=== PATIENT | female | born 1990 | race Caucasian/White ===

== ENCOUNTER 2017-11-29 06:17 | Inpatient (IN) | payer SELFPAY ==
[2017-11-29] MEDS: LACTATED RINGER'S 1,000 ML IV* ×3 (06:47→22:04)
[2017-11-29] MEDS ORDERED: METHYLERGONOVINE 0.2 MG INJ IM (07:00)
[2017-11-29] MEDS ORDERED: BUTORPHANOL 2 MG INJ IV (07:00)
[2017-11-29] MEDS ORDERED: MISOPROSTOL 200 MCG TAB PR (07:00)
[2017-11-29] MEDS ORDERED: IBUPROFEN 600 MG TAB PO (07:00)
[2017-11-29] MEDS ORDERED: CARBOPROST 250 MCG INJ IM (07:00)
[2017-11-29] MEDS ORDERED: OXYTOCIN 30 UNITS/LR 500 ML IV ×2 (07:00)
[2017-11-29] MEDS ORDERED: LIDOCAINE 1% (MPF) 30 ML INJ INJ (07:00)
[2017-11-29] MEDS: AMPICILLIN 2 GM/NS (PMX) 100 ML IV (07:18)
[2017-11-29 07:39] LABS: ADD MAN DIFF? NO
[2017-11-29 07:46] LABS: WHITE BLOOD COUNT 9.8 10^3/ul (4.8-10.8)
[2017-11-29 07:46] LABS: BASOPHILS % 0.4 % (0.0-2.0); EOSINOPHILS # 0.1 10^3/ul (0.0-0.5); EOSINOPHILS % 0.6 % (0.0-7.0); HEMATOCRIT 37.8 % (37.0-47.0); HEMOGLOBIN 12.2 g/dl (12.0-16.0); LYMPHOCYTES # 2.2 10^3/ul (0.8-2.9); LYMPHOCYTES % 22.1 % (15.0-51.0); MEAN CORPUSCULAR HEMOGLOBIN 27.2 pg (29.0-33.0); MEAN CORPUSCULAR HGB CONC 32.3 g/dl (32.0-37.0); MEAN CORPUSCULAR VOLUME 84.2 fl (82.0-101.0); MEAN PLATELET VOLUME 11.2 fl (7.4-10.4); MONOCYTE # 0.8 10^3/ul (0.3-0.9); MONOCYTES % 7.9 % (0.0-11.0); NEUTROPHIL # 6.7 10^3/ul (1.6-7.5); NEUTROPHILS % 68.4 % (39.0-77.0); PLATELET COUNT 272 10^3/UL (140-415); RED BLOOD COUNT 4.49 10^6/ul (4.20-5.40); RED CELL DISTRIBUTION WIDTH 14.3 % (11.5-14.5)
[2017-11-29 08:01] LABS: INR 0.93; PROTIME 12.6 Sec (11.9-14.9)
[2017-11-29 08:34] LABS: HEPATITIS B SURFACE ANTIGEN NEGATIVE (NEGATIVE)
[2017-11-29] MEDS: OXYTOCIN 30 UNITS/LR 500 ML IV (09:04)
[2017-11-29] MEDS: AMPICILLIN 1 GM/NS (PMX) 50 ML IV ×4 (11:14→22:31)
[2017-11-29] MEDS ORDERED: FENTAnyl 2MCG/ML-ROPIV 0.2% 100 ML (17:07)
[2017-11-29 17:08] LABS: RAPID PLASMA REAGIN NONREACTIVE (NR)
[2017-11-29] MEDS: LACTATED RINGER'S 1,000 ML IV (17:18)
[2017-11-29] MEDS ORDERED: DIPHENHYDRAMINE 50 MG INJ IV (18:00)
[2017-11-29] MEDS ORDERED: ONDANSETRON 4 MG INJ IV (18:00)
[2017-11-29] MEDS ORDERED: NALOXONE (0.4 MG/ML) INJ IV (18:00)
[2017-11-29] MEDS: FENTAnyl 2MCG/ML-ROPIV 0.2% 100 ML BAG EPI (18:05)
[2017-11-30] MEDS: OXYTOCIN 30 UNITS/LR 500 ML IV (00:49)
[2017-11-30] MEDS ORDERED: OXYTOCIN 30 UNITS/LR 500 ML IV ×2 (00:57→01:00)
[2017-11-30] MEDS ORDERED: HYDROCODONE/APAP (5/325) TAB PO (01:00)
[2017-11-30] MEDS ORDERED: CARBOPROST 250 MCG INJ IM (01:00)
[2017-11-30] MEDS ORDERED: MISOPROSTOL 200 MCG TAB PR (01:00)
[2017-11-30] MEDS ORDERED: METHYLERGONOVINE 0.2 MG INJ IM (01:00)
[2017-11-30] MEDS: LANOLIN 7 GM TUBE TOP (03:49)
[2017-11-30] MEDS: WITCH HAZEL/GLYCERIN PAD PR (03:50)
[2017-11-30] MEDS: BENZOCAINE 20% 56 ML SPRAY TOP (03:50)
[2017-11-30] MEDS: LACTATED RINGER'S 1,000 ML IV* ×3 (04:46→16:57)
[2017-11-30] MEDS: IBUPROFEN 600 MG TAB PO ×4 (05:59→23:38)
[2017-12-01] MEDS: IBUPROFEN 600 MG TAB PO ×3 (05:46→18:08)
[2017-12-01 09:11] LABS: ADD MAN DIFF? NO
[2017-12-01 09:19] LABS: BASOPHIL # 0.1 10^3/ul (0.0-0.1); BASOPHILS % 0.7 % (0.0-2.0); EOSINOPHILS # 0.2 10^3/ul (0.0-0.5); EOSINOPHILS % 1.5 % (0.0-7.0); HEMOGLOBIN 10.2 g/dl (12.0-16.0); LYMPHOCYTES # 2.4 10^3/ul (0.8-2.9); MEAN CORPUSCULAR HEMOGLOBIN 27.1 pg (29.0-33.0); MEAN CORPUSCULAR HGB CONC 31.9 g/dl (32.0-37.0); MEAN CORPUSCULAR VOLUME 85.1 fl (82.0-101.0); MEAN PLATELET VOLUME 10.8 fl (7.4-10.4); MONOCYTE # 0.8 10^3/ul (0.3-0.9); MONOCYTES % 8.3 % (0.0-11.0); NEUTROPHIL # 6.2 10^3/ul (1.6-7.5); PLATELET COUNT 237 10^3/UL (140-415); RED BLOOD COUNT 3.76 10^6/ul (4.20-5.40); RED CELL DISTRIBUTION WIDTH 14.4 % (11.5-14.5)
[2017-12-01 09:19] LABS: WHITE BLOOD COUNT 9.7 10^3/ul (4.8-10.8)
[2017-12-02] MEDS ORDERED: DIPHTH/TET/ACEL PERTUSS (ADULT) 0.5 ML VIAL IM* (09:00)
== END 2017-12-01 19:25 | disposition home or self-care (01) | DRG 775 ==
LOC: PP1 11-30 02:43 → L-D 06:17
PROVIDERS: Obstetrics & Gynecology
PROC: 4A1HXCZ Monitoring of Products of Conception, Cardiac Rate, External Approach (ICD-10-PCS; 2017-11-29 06:00)
PROC: 3E0P7GC Introduction of Other Therapeutic Substance into Female Reproductive, Via Natural or Artificial Opening (ICD-10-PCS; 2017-11-29 06:00)
DX: O48.0 Post-term pregnancy (principal); O70.1 Second degree perineal laceration during delivery; O99.824 Streptococcus B carrier state complicating childbirth; O75.81 Maternal exhaustion complicating labor and delivery; Z3A.41 41 weeks gestation of pregnancy; Z37.0 Single live birth
CPT/HCPCS: 62319; 76815; 85025; 85610; 85730; 86592; 86850; 86900; 86901; 87340; 99464